=== PATIENT | male | born 1975 | race Caucasian/White ===

== ENCOUNTER 2018-02-07 11:19 | Outpatient (CLI) | payer OTHER | END 2018-02-07 11:20 | disposition home or self-care (01) | LOC: CTENTCT 11:19 | PROVIDERS: ATTEND Otolaryngology Plastic Surgery within the Head & Neck | DX: J32.9 Chronic sinusitis, unspecified (principal) | CPT/HCPCS: 70486 ==

== ENCOUNTER 2019-10-22 13:13 | Emergency (ER) | payer OTHER ==
[2019-10-22] MEDS ORDERED: Nitroglycerin 2% Ointment 1 INCH/1 GM Packet ONE (13:33)
[2019-10-22 13:48] LABS: #Basophils 0.1 thou/uL (0.0-0.2); #Eosinphils 0.2 thou/uL (0.0-0.7); #Lymphocytes 3.2 thou/uL (1.20-3.40); #Monocytes 0.9 thou/uL (0.11-0.59); #Neutrophils 5.2 thou/uL (1.40-6.50); %Basophils 1.1 % (0.0-1.0); %Lymphocytes 33.4 % (21.0-51.0); %Monocytes 9.1 % (0.0-10.0); %Neutrophils 54.4 % (42.0-75.0); Mean Corpuscular HGB CONC 33.2 g/dL (32.0-36.0); Mean Corpuscular Hemoglobin 30.5 pg (27.0-31.0); Mean Platelet Volume 7.8 fL (7.4-10.4); Platelet Count 269 thou/uL (130-400); RBC Distribution Width 12.5 % (11.5-14.5); Red Blood Cell (RBC) Count 4.92 mill/uL (4.70-6.10); White Blood Cell (WBC) Count 9.5 thou/uL (4.8-10.8)
--- NOTE | 2019-10-22 14:02 | RAD ---
PORTABLE CHEST 1 VIEW: DATE: 10/22/2019. TIME: 1:28 PM. HISTORY: Chest pain. COMPARISON: 05/26/2017. FINDINGS: The heart size is normal. The lungs are expanded without focal areas of consolidation, pneumothorace s, or pleural effusions. There are postop changes of right shoulder rotator cuff surgery. IMPRESSION: No evidence of acute cardiopulmonary process. POS: [facility]
[2019-10-22 14:10] LABS: ALT (SGPT) 32 U/L (8-55); AST (SGOT) 28 U/L (5-34); Albumin 4.2 g/dL (3.5-5.0); Alkaline Phosphatase 84 U/L (40-110); Anion Gap 13 mmol/L (10-20); BUN (Urea Nitrogen) 12 mg/dL (8.9-20.6); Bilirubin, Total 1.2 mg/dL (0.2-1.2); CK (CPK) 214 U/L (30-200); Calc. Creatinine Clearance 0 mL/min (70-130); Calcium 8.9 mg/dL (7.8-10.44); Carbon Dioxide 24 mmol/L (22-29); Chloride 105 mmol/L (98-107); Estimated GFR-MDRD 85; Globulin 2.3 g/dL (2.4-3.5); Glucose 99 mg/dL (70-105); Lipase 67 U/L (8-78); Potassium 3.9 mmol/L (3.5-5.1); Protein, Total 6.5 g/dL (6.0-8.3); Sodium 138 mmol/L (136-145)
[2019-10-22 17:01] LABS: Troponin I Less than 0.010 ng/mL (< 0.028)
--- NOTE | 2019-10-22 21:08 | DIS ---
DATE OF ADMISSION: 10/22/2019 DATE OF DISCHARGE: 10/22/2019 BRIEF HISTORY OF PRESENT ILLNESS: This is a 44-year-old male with a past medical history of possible heart attack at the age of 28, hypertension, but not on any medications, who presented to the emergency room with chest pain. The patient stated that he was mowing his lawn. 30 minutes after that, he started feeling dizzy and lightheaded and sat down. When he sat down, the patient stated that he had a squeezing chest pain on his left side that felt like his heart was being ripped out of his chest. His also noticed that the patient was very ashen and pale. His pain was associated with shortness of breath. It subsided after 10 minutes. He did not take any aspirin at home, but called the ambulance. He did have some chills , but no fever. He denied any shortness of breath, runny nose, sore throat, or cough. He recently traveled to [facility], but not out of the community health. He denied any headaches, abdominal pain, nausea, or vomiting. He was given aspirin in the ambulance and has had not have recurrence of his chest pain since. PAST MEDICAL HISTORY: Possible heart attack at the age of 28. The patient states he does not have any stents placed and had no significant blockages. PAST SURGICAL HISTORY: The patient has had three hernia repairs, varicocele, rotator cuff surgery, lower back surgery. FAMILY HISTORY: The patient reports both of his grandfathers had heart attacks. SOCIAL HISTORY: The patient lives at home with his . He has been smoking half a pack a day for the past 30 years. He reports occasional alcohol use. He denies any illicit drug use. HOME MEDICATIONS: None. ALLERGIES: AMOXICILLIN. PHYSICAL EXAMINATION: 142/80, RR 18, 78, 100% on room air VITAL SIGNS: normal on discharge GENERAL: The patient is alert, awake, and oriented x3. CVS: Regular rate and rhythm with no murmurs, rubs, or gallops. LUNGS: Clear to auscultation bilaterally. ABDOMEN: Positive bowel sounds, soft, nontender, nondistended. EXTREMITIES: No edema. PERTINENT LABORATORY DATA: CBC 10/21: Unremarkable. CMP 10/21: Unremarkable. CK: 214. Troponin I: Less than 0.010 x2. BMP: Less than 10. Lipase: 67. IMAGING: Chest x-ray 10/21: Normal. HOSPITAL COURSE: The patient had an EKG, which showed normal sinus rhythm. He had 2 sets of troponins, which were negative. I advised that he stay in the hospital for a stress test the following day. The patient did decide to leave AMA and was aware of the risks of leaving against medical advice. He should follow up with his primary care doctor within a week. DISPOSITION: The patient left AMA. DIET: Heart healthy diet. Job ID: [id number] [facility]
--- NOTE | 2019-10-24 14:24 | EKG ---
Test Reason : Blood Pressure : / mmHG Vent. Rate : 079 BPM Atrial Rate : 079 BPM P-R Int : 122 ms QRS Dur : 092 ms QT Int : 366 ms P-R-T Axes : 053 067 058 degrees QTc Int : 419 ms Normal sinus rhythm with sinus arrhythmia Normal ECG Confirmed by ARNULFO ROSENTHAL, DENNISE ([id number]), non linear editor ANDRE TINOCO ([id number]) on 10/24/2019 2:23:34 PM Referred By: Confirmed By:DENNISE ARREDONDO MD
== END 2019-10-22 17:35 | disposition left against medical advice (07) ==
LOC: ERS 13:13
DX: R07.82 Intercostal pain (principal); I25.2 Old myocardial infarction; F17.210 Nicotine dependence, cigarettes, uncomplicated
CPT/HCPCS: 71045; 80053; 82550; 83690; 83880; 84484; 85025; 93005

== ENCOUNTER 2020-10-28 11:11 | Outpatient (CLI) | payer BC | END 2020-10-28 11:12 | disposition home or self-care (01) | LOC: BICRAD 11:11 | PROVIDERS: ATTEND Nurse Practitioner Family | DX: R06.02 Shortness of breath (principal) | CPT/HCPCS: 71046 ==

== ENCOUNTER 2022-06-02 14:22 | Outpatient (CLI) | payer BC | END 2022-06-02 14:23 | disposition home or self-care (01) | LOC: CTENTCT 14:22 | PROVIDERS: ATTEND Student in an Organized Health Care Education/Training Program | DX: R09.81 Nasal congestion (principal) | CPT/HCPCS: 70486 ==